=== PATIENT | female | born 1990 | race Caucasian/White ===

== ENCOUNTER 2017-03-14 15:56 | Emergency (ER) | payer OTHER ==
[2017-03-14] MEDS ORDERED: NO MEDICATIONS (16:14)
[2017-03-14 16:19] LABS: URINE SOURCE CLEAN CATCH
[2017-03-14 16:23] LABS: URINE APPEARANCE HAZY; URINE BILIRUBIN NEG (NEG); URINE BLOOD 3+ (NEG); URINE COLOR YELLOW; URINE GLUCOSE NEG (NORM); URINE KETONE TRACE (NEG); URINE LEUKOCYTE ESTERASE NEG (NEG); URINE NITRATE NEG (NEG); URINE PROTEIN NEG (NEG); URINE UROBILINOGEN 0.2 MG/DL (NORM)
[2017-03-14 16:27] LABS: MICRO INDICATED? YES
[2017-03-14 16:29] LABS: URINE RBC 50-100 /[HPF] (0-2)
[2017-03-14 16:30] LABS: CULTURE INDICATED? NO; URINE BACTERIA NEG (NEG); URINE MUCUS PRESENT; URINE SQUAMOUS EPITHELIAL CELL MODERATE /[HPF]; URINE WBC NEG /[HPF] (0-5)
[2017-03-14 17:12] LABS: BASOPHIL# 0.1 X10e3 (0-0.3); BASOPHIL% 0.4 % (0-2.5); DIFF IND NO; EOSINOPHIL# 0.1 X10e3 (0-0.7); EOSINOPHIL% 0.3 % (0.0-7.0); HEMATOCRIT 40.7 % (35.0-45.0); HEMOGLOBIN 13.7 gm/dL (12.0-16.0); LYMPHOCYTE# 1.5 X10e3 (1.0-3.5); LYMPHOCYTE% 9.4 % (17.0-45.0); MEAN CELL VOLUME 84.3 FL (83-96); MEAN CORPUSCULAR HEMOGLOBIN 28.4 PG (28-34); MEAN CORPUSCULAR HGB CONC 33.7 g/dL (30-36); MEAN PLATELET VOLUME 8.3 FL (6.5-11.5); MONOCYTE# 0.6 X10e3 (0-1.0); MONOCYTE% 3.6 % (3.0-12.0); NEUTROPHIL# 13.5 X10e3 (1.5-7.1); NEUTROPHIL% 86.3 % (40-75); PLATELET COUNT 365 X10e3 (140-420); RED BLOOD COUNT 4.82 X10e (3.90-5.30); RED CELL DISTRIBUTION WIDTH 13.3 % (11.0-15.5); WHITE BLOOD COUNT 15.7 X10e3 (4.0-10.5)
[2017-03-14 17:26] LABS: BUN/CREATININE RATIO 12.22; CALCIUM SERUM 8.6 mg/dL (8.4-10.2); CREATININE SERUM 0.9 mg/dL (0.6-1.4); GLOM FILT RATE Estimated 87.7 mL/min (>60); POTASSIUM 3.7 mmol/L (3.5-5.1)
== END 2017-03-14 18:00 | disposition home or self-care (01) ==
LOC: SED 15:56
PROVIDERS: Student in an Organized Health Care Education/Training Program
DX: O99.89 Other specified diseases and conditions complicating pregnancy, childbirth and the puerperium (principal); N20.1 Calculus of ureter
CPT/HCPCS: 36415; 80048; 81003; 84702; 85025; 99284